=== PATIENT | male | born 1955 | race Caucasian/White ===

== ENCOUNTER → 2016-07-09 | Outpatient (CLI) | payer BC ==
[~2016-07-09] VITALS: Ht 175.3 cm; Wt 89.8 kg
[~2016-07-09] MED LIST: LIDOCAINE 2% INJ 100 MG/5 ML SDV (FOR ANES.) As Ordered ONE; LISI10TA4 PO; NS 1,000 ML IV SCH; PROPOFOL 500 MG/50 ML VIAL As Ordered ONE; VYTO10TA2 PO; ePHEDrine SULFATE 25 MG/5 ML(5MG/ML) SYRINGE As Ordered ONE
--- NOTE | 2016-07-09 10:35 | ROOR ---
Patient Name: Anthony Tovar Procedure Date: 07/09/2016 10:11 AM Date of : 1955 Age: 61 Room: [facility] Gender: Male Note Status: Finalized Procedure: Colonoscopy to Cecum Indications: High risk colon cancer surveillance: Personal history of colonic polyps Providers: Kirby Vick MD Referring MD: Jenaro Snyder MD Requesting Provider: Medicines: Monitored Anesthesia Care Complications: No immediate complications. Procedure: Pre-Anesthesia Assessment: - The heart rate, respiratory rate, oxygen saturations, blood pressure, adequacy of pulmonary ventilation, and response to care were monitored throughout the procedure. The Colonoscope was introduced through the anus and advanced to the cecum, identified by appendiceal orifice and ileocecal valve. The colonoscopy was performed without difficulty. The patient tolerated the procedure well. The quality of the bowel preparation was good. Findings: The perianal and digital rectal examinations were normal. Non-bleeding internal hemorrhoids were found during retroflexion. The hemorrhoids were small and Grade I (internal hemorrhoids that do not prolapse). No other significant abnormalities were identified in a careful examination of the remainder of the colon. The exam was otherwise without abnormality on direct and retroflexion views. Impression: - Non-bleeding internal hemorrhoids. - The examination was otherwise normal on direct and retroflexion views. - No specimens collected. - The exam was otherwise normal to the cecum. Recommendation: - Patient has a contact number available for emergencies. The signs and symptoms of potential delayed complications were discussed with the patient. Return to normal activities tomorrow. Written discharge instructions were provided to the patient. - High fiber diet. - Discharge patient to home. - Continue present medications. - Repeat colonoscopy in 5 years for screening purposes. - Return to referring physician. - The findings and recommendations were discussed with the patient's family. Kirby Vick MD Kirby Vick MD 07/09/2016 10:34:49 AM This report has been signed electronically. Number of Addenda: 0 Note Initiated On: 07/09/2016 10:11 AM Estimated Blood Loss: Estimated blood loss: none.
[2016-07-09 10:55] VITALS: BP 124/54
== END | disposition home or self-care (01) ==
LOC: M OPP 09:02
PROVIDERS: ATTEND Internal Medicine Gastroenterology
DX: Z12.11 Encounter for screening for malignant neoplasm of colon (principal); Z86.010 Personal history of colon polyps; K64.0 First degree hemorrhoids; I10 Essential (primary) hypertension; E78.00 Pure hypercholesterolemia, unspecified; Z97.4 Presence of external hearing-aid; Z79.899 Other long term (current) drug therapy

== ENCOUNTER → 2016-10-16 | Outpatient (CLI) | payer BC ==
[~2016-10-16] MED LIST changes: -LIDOCAINE 2% INJ 100 MG/5 ML SDV (FOR ANES.) As Ordered ONE; -NS 1,000 ML IV SCH; -PROPOFOL 500 MG/50 ML VIAL As Ordered ONE; -ePHEDrine SULFATE 25 MG/5 ML(5MG/ML) SYRINGE As Ordered ONE
[2016-10-16 17:58] LABS: ALBUMIN 3.6 GM/DL (3.2-5.2); ALBUMIN/GLOBULIN RATIO 1.16 (1.00-1.93); ALKALINE PHOSPHATASE 62 U/L (45-117); ALT/SGPT 45 U/L (12-78); ANION GAP 7 MEQ/L (8-16); AST/SGOT 28 U/L (15-37); BILIRUBIN,TOTAL 0.4 MG/DL (0.2-1.0); BLOOD UREA NITROGEN 25 MG/DL (7-18); CALCIUM LEVEL 8.7 MG/DL (8.5-10.1); CARBON DIOXIDE LEVEL 27 MEQ/L (21-32); CHLORIDE LEVEL 109 MEQ/L (98-107); CHOLESTEROL LEVEL 226 MG/DL (<200); CREATININE FOR GFR 1.21 MG/DL (0.70-1.30); GLOMERULAR FILTRATION RATE > 60.0 (>56); GLUCOSE, FASTING 105 MG/DL (70-105); POTASSIUM SERUM 4.4 MEQ/L (3.5-5.1); SODIUM LEVEL 143 MEQ/L (136-145); TOTAL PROTEIN 6.7 GM/DL (6.4-8.2); TRIGLYCERIDES LEVEL 244 MG/DL (<150)
[2016-10-19 14:20] LABS: PSA TOTAL 0.8 ng/mL (0.0-4.0)
== END ==
LOC: M WUC 08:08
PROVIDERS: ATTEND Nurse Practitioner Family
DX: E78.4 Other hyperlipidemia (principal); I10 Essential (primary) hypertension; Z12.5 Encounter for screening for malignant neoplasm of prostate; Z13.818 Encounter for screening for other digestive system disorders

== ENCOUNTER 2018-03-20 16:17 | Inpatient (IN) | payer OTHER, BC ==
[2018-03-20 17:30] LABS: HEMOGLOBIN 15.1 g/dl (13.5-17.5); MEAN CORPUSCULAR HEMOGLOBIN 29.8 pg (27.0-33.0); MEAN CORPUSCULAR HGB CONC 34.3 g/dl (32.0-36.5); PLATELET COUNT, AUTOMATED 301 10^3/uL (150-450); RED BLOOD COUNT 5.06 10^6/uL (4.30-6.10); RED CELL DISTRIBUTION WIDTH 12.5 % (11.5-14.5); WHITE BLOOD COUNT 9.4 10^3/uL (4.0-10.0)
[2018-03-20 17:55] LABS: INR 1.01; PROTHROMBIN TIME 13.4 SECONDS (12.1-14.4)
[2018-03-20 18:01] LABS: ANION GAP 10 MEQ/L (8-16); BLOOD UREA NITROGEN 23 MG/DL (7-18); CALCIUM LEVEL 8.7 MG/DL (8.8-10.2); CARBON DIOXIDE LEVEL 23 MEQ/L (21-32); CHLORIDE LEVEL 111 MEQ/L (98-107); GLOMERULAR FILTRATION RATE > 60.0 (>49); GLUCOSE, FASTING 147 MG/DL (70-100); POTASSIUM SERUM 4.1 MEQ/L (3.5-5.1); SODIUM LEVEL 144 MEQ/L (136-145)
[2018-03-20] MEDS: LORazepam 1 MG TAB PO ×2 (19:05→19:40)
[2018-03-20] MEDS ORDERED: LORazepam 2 MG/ML VIAL (J2060) IV (19:35)
[2018-03-20] MEDS ORDERED: ISOVUE-370 76% 100ML VIAL (Q9967) As Ordered (20:38)
[2018-03-20] MEDS: METOCLOPRAMIDE INJ 10MG/2ML VIAL (J2765) IV (20:40)
[2018-03-20] MEDS ORDERED: VANCOMYCIN HCL 1,000 MG, VIAL MATE ADAPTER 1 EACH in D5W 250 ML IV (21:30)
[2018-03-20] MEDS ORDERED: CEFEPIME HCL 1 GM in D5W MINI-BAG PLUS 50 ML IV (21:30)
[2018-03-20] MEDS ORDERED: NS 1,000 ML IV (23:30)
[2018-03-21 00:07] LABS: CPK CREATINE PHOSPHOKINASE 208 U/L (39-308); MAGNESIUM LEVEL 2.4 MG/DL (1.8-2.4)
[2018-03-21] MEDS: SUMAtriptan SUCCINATE 25 MG TAB PO (00:51)
[2018-03-21] MEDS: HEPARIN SOD (PORCINE) 5000 UNITS/ML VIAL SC ×3 (05:44→20:33)
[2018-03-21] MEDS: ACETAMINOPHEN TAB 650MG DOSE (2X325MG) PO (05:44)
[2018-03-21 07:05] LABS: HEMATOCRIT 40.8 % (42.0-52.0); HEMOGLOBIN 13.6 g/dl (13.5-17.5); MEAN CORPUSCULAR HEMOGLOBIN 29.3 pg (27.0-33.0); MEAN CORPUSCULAR HGB CONC 33.3 g/dl (32.0-36.5); MEAN CORPUSCULAR VOLUME 87.9 fl (80.0-96.0); PLATELET COUNT, AUTOMATED 267 10^3/uL (150-450); RED BLOOD COUNT 4.64 10^6/uL (4.30-6.10); RED CELL DISTRIBUTION WIDTH 12.6 % (11.5-14.5); WHITE BLOOD COUNT 9.8 10^3/uL (4.0-10.0)
[2018-03-21 07:23] LABS: ANION GAP 8 MEQ/L (8-16); BLOOD UREA NITROGEN 19 MG/DL (7-18); CALCIUM LEVEL 8.3 MG/DL (8.8-10.2); CARBON DIOXIDE LEVEL 25 MEQ/L (21-32); CHLORIDE LEVEL 110 MEQ/L (98-107); CREATININE FOR GFR 1.08 MG/DL (0.70-1.30); GLOMERULAR FILTRATION RATE > 60.0 (>49); GLUCOSE, FASTING 85 MG/DL (70-100); POTASSIUM SERUM 3.8 MEQ/L (3.5-5.1); SODIUM LEVEL 143 MEQ/L (136-145)
[2018-03-21] MEDS: FLUTICASONE PROP 0.05% NASAL SPRAY 16 GM (FLONASE) NARES ×2 (08:24→21:00)
[2018-03-21] MEDS: EZETIMIBE 10 MG TAB (ZETIA) PO (08:24)
[2018-03-21] MEDS ORDERED: ACETAMINOPHEN TAB 650MG DOSE (2X325MG) PO (09:15)
[2018-03-21] MEDS: PANTOPRAZOLE 40MG TAB (PROTONIX) PO (09:47)
[2018-03-21] MEDS: METOCLOPRAMIDE INJ 10MG/2ML VIAL (J2765) IV (09:47)
[2018-03-21] MEDS: MAALOX 30 ML SUSP *UDC PO (09:47)
[2018-03-21] MEDS: KETOROLAC 30 MG/ML VIAL (J1885) IV ×2 (09:47→17:11)
[2018-03-21] MEDS: CETIRIZINE (ZyrTEC) 10 MG TAB PO (09:47)
[2018-03-21] MEDS: PHENYLEPHRINE 2.5% OPHTH SOL 2ML XX (11:00)
[2018-03-21] MEDS: TROPICAMIDE 1% OPHTH SOLN 2ML XX (11:00)
[2018-03-21] MEDS: PROPARACAINE 0.5% OPHTH SOL 15ML XX (11:00)
[2018-03-21] MEDS: ASPIRIN 81 MG ENTERIC TAB PO (18:37)
[2018-03-21 19:31] LABS: CPK CREATINE PHOSPHOKINASE 105 U/L (39-308); MB/CK RELATIVE INDEX 0.95 (< OR =4); TROPONIN I < 0.02 NG/ML (< 0.10)
[2018-03-21] MEDS: SIMVASTATIN 40 MG TAB PO (20:32)
[2018-03-21] MEDS: LISINOPRIL 10 MG TAB PO (20:33)
[2018-03-21] MEDS ORDERED: LevoFLOXacin 500 MG TABLET PO (21:00)
[2018-03-22 00:50] LABS: CK-MB VALUE MASS < 1.0 NG/ML (<3.6); CPK CREATINE PHOSPHOKINASE 95 U/L (39-308); MB/CK RELATIVE INDEX 1.05 (< OR =4); TROPONIN I < 0.02 NG/ML (< 0.10)
[2018-03-22 05:13] LABS: HEMATOCRIT 38.2 % (42.0-52.0); HEMOGLOBIN 13.2 g/dl (13.5-17.5); MEAN CORPUSCULAR HEMOGLOBIN 29.8 pg (27.0-33.0); MEAN CORPUSCULAR HGB CONC 34.6 g/dl (32.0-36.5); MEAN CORPUSCULAR VOLUME 86.2 fl (80.0-96.0); PLATELET COUNT, AUTOMATED 256 10^3/uL (150-450); RED BLOOD COUNT 4.43 10^6/uL (4.30-6.10); RED CELL DISTRIBUTION WIDTH 12.2 % (11.5-14.5); WHITE BLOOD COUNT 9.1 10^3/uL (4.0-10.0)
[2018-03-22] MEDS: HEPARIN SOD (PORCINE) 5000 UNITS/ML VIAL SC ×2 (05:21→15:45)
[2018-03-22] MEDS: KETOROLAC 30 MG/ML VIAL (J1885) IV (05:21)
[2018-03-22 05:31] LABS: ANION GAP 9 MEQ/L (8-16); BLOOD UREA NITROGEN 19 MG/DL (7-18); CALCIUM LEVEL 8.2 MG/DL (8.8-10.2); CARBON DIOXIDE LEVEL 25 MEQ/L (21-32); CHLORIDE LEVEL 110 MEQ/L (98-107); CREATININE FOR GFR 1.06 MG/DL (0.70-1.30); GLOMERULAR FILTRATION RATE > 60.0 (>49); GLUCOSE, FASTING 102 MG/DL (70-100); POTASSIUM SERUM 4.1 MEQ/L (3.5-5.1); SODIUM LEVEL 144 MEQ/L (136-145)
[2018-03-22] MEDS: FLUTICASONE PROP 0.05% NASAL SPRAY 16 GM (FLONASE) NARES (08:59)
[2018-03-22] MEDS: PANTOPRAZOLE 40MG TAB (PROTONIX) PO (08:59)
[2018-03-22] MEDS: ASPIRIN 81 MG ENTERIC TAB PO (08:59)
[2018-03-22] MEDS: EZETIMIBE 10 MG TAB (ZETIA) PO (08:59)
[2018-03-22 18:38] LABS: ERYTHROCYTE SEDIMENTATION RATE 3 mm/hr (0-20)
[2018-03-22 18:40] LABS: C REACTIVE PROTEIN QUANTITATIV < 0.30 MG/DL (0.00-0.30)
== END 2018-03-22 19:30 | disposition short-term general hospital (02) | DRG 66 ==
LOC: M MSPAV 03-21 17:01 → M ED 16:17 → M ICU 03-21 19:05 → M ED INP 23:21
DX: I63.9 Cerebral infarction, unspecified (principal); H49.02 Third [oculomotor] nerve palsy, left eye; H02.432 Paralytic ptosis of left eyelid; I10 Essential (primary) hypertension; R00.1 Bradycardia, unspecified; H50.00 Unspecified esotropia; J32.9 Chronic sinusitis, unspecified; H53.2 Diplopia; E78.5 Hyperlipidemia, unspecified; G43.909 Migraine, unspecified, not intractable, without status migrainosus; H04.123 Dry eye syndrome of bilateral lacrimal glands; H35.033 Hypertensive retinopathy, bilateral; H43.813 Vitreous degeneration, bilateral; E78.00 Pure hypercholesterolemia, unspecified; G43.109 Migraine with aura, not intractable, without status migrainosus; Z79.899 Other long term (current) drug therapy

== ENCOUNTER 2018-09-02 14:11 | Emergency (ER) | payer OTHER ==
[~2018-09-02] VITALS: Ht 172.7 cm; Wt 90.9 kg
[~2018-09-02 14:11] MED LIST changes: +EZET10TA PO; +FROV2.5T6 PO; +LEVA1TAB2 PO; +SIMV40TA2 PO; -VYTO10TA2 PO; +VYTO10TA25 PO
[2018-09-02] MEDS ORDERED: LIDOCAINE W/EPINEPHRINE 1% 20ML VIAL As Ordered ONE (15:09)
[2018-09-02] MEDS ORDERED: ADACEL/BOOSTRIX VACCINE (DIPHTH/PERTUSS/ACELL/TETANUS)0.5ML SYR (90715) IM ONE (15:30)
[2018-09-02] MEDS ORDERED: LIDOCAINE W/EPINEPHRINE 1% 20ML VIAL SC ONE (15:30)
[2018-09-02 15:32] VITALS: BP 121/96
== END 2018-09-02 15:38 | disposition home or self-care (01) ==
LOC: M ED 14:11
DX: S01.01XA Laceration without foreign body of scalp, initial encounter (principal); X58.XXXA Exposure to other specified factors, initial encounter; Y92.59 Other trade areas as the place of occurrence of the external cause; I10 Essential (primary) hypertension; Z79.899 Other long term (current) drug therapy

== ENCOUNTER 2018-11-07 08:06 | Outpatient (CLI) | payer OTHER ==
[2018-11-07] MEDS ORDERED: MIDAZOLAM INJ 2 MG/2 ML VIAL (J2250) As Ordered ONE ×2 (08:14→08:15)
[2018-11-07] MEDS ORDERED: PROHANCE 279.3MG/ML 15ML VIAL (A9576) As Ordered ONE (09:18)
[2018-11-07] MEDS ORDERED: PROHANCE 279.3MG/ML 5ML VIAL (A9576) As Ordered ONE (09:18)
[2018-11-07 10:05] VITALS: BP 134/63
--- NOTE | 2018-11-08 08:41 | REP ---
MR BRAIN WITHOUT AND WITH CONTRAST: HISTORY: Meningioma. CONTRAST: ProHance 19 mL. COMPARISON: CT 03/20/2018. Several punctate areas of increased signal intensity on T2 weighted images are present in the subcortical white matter. This represents small vessel ischemic disease. There is no intraparenchymal hemorrhage, infarct or midline shift. The ventricular system is normal in appearance. There is no extracerebral collection. A small mass iso and slightly hyperintense on T1 and T2 weighted images respectively is present in the inferior left cavernous sinus. There is mild homogenous enhancement with contrast. This represents a meningoma. The meningioma measures 0.9 cm in transverse x 1.4 cm in AP x 1 cm cephalocaudal dimensions. The meningoma partially encases the cavernous left internal carotid artery. There is no extension into the sella turcica. The infundibulum is midline. The right cavernous sinus, optic chiasm and hypothalamus are normal in appearance. The visualized sinuses are clear. IMPRESSION: 1. Minimal small vessel ischemic disease. 2. Small left cavernous sinus meningoma as described above. Electronically Signed by Iglesia Bello MD 11/08/2018 08:46 A
== END 2018-11-07 10:35 | disposition home or self-care (01) ==
LOC: M RAD 08:06
PROVIDERS: ATTEND Physician Assistant Medical
DX: D32.9 Benign neoplasm of meninges, unspecified (principal); I67.82 Cerebral ischemia
CPT/HCPCS: 70553; A9576; J2250

== ENCOUNTER → 2019-04-16 | Outpatient (CLI) | payer OTHER ==
[~2019-04-16] MED LIST changes: -EZET10TA PO; +EZET10TA21 PO
[2019-04-16 09:33] LABS: BASO # 0.1 10^3/uL (0.0-0.2); BASO % 0.8 % (0.0-1.0); EOS # 0.3 10^3/uL (0.0-0.5); EOS % 3.8 % (0.0-3.0); HEMATOCRIT 41.4 % (42.0-52.0); HEMOGLOBIN 13.6 g/dl (13.5-17.5); LYMPH % 30.8 % (24.0-44.0); MEAN CORPUSCULAR HEMOGLOBIN 29.3 pg (27.0-33.0); MEAN CORPUSCULAR HGB CONC 32.9 g/dl (32.0-36.5); MEAN CORPUSCULAR VOLUME 89.2 fl (80.0-96.0); MONO # 0.7 10^3/uL (0.0-0.8); NEUTROPHILS # 3.6 10^3/uL (1.5-8.5); NEUTROPHILS % 54.3 % (36.0-66.0); PLATELET COUNT, AUTOMATED 234 10^3/uL (150-450); RED BLOOD COUNT 4.64 10^6/uL (4.30-6.10); WHITE BLOOD COUNT 6.6 10^3/uL (4.0-10.0)
[2019-04-16 10:11] LABS: ALBUMIN 3.6 GM/DL (3.2-5.2); ALT/SGPT 42 U/L (12-78); BILIRUBIN,TOTAL 0.5 MG/DL (0.2-1.0); BLOOD UREA NITROGEN 17 MG/DL (7-18); CALCIUM LEVEL 8.7 MG/DL (8.8-10.2); CARBON DIOXIDE LEVEL 30 MEQ/L (21-32); CHLORIDE LEVEL 111 MEQ/L (98-107); CHOLESTEROL LEVEL 205 MG/DL (<200); CHOLESTEROL RISK RATIO 3.203 (<5); CREATININE FOR GFR 1.11 MG/DL (0.70-1.30); FREE T4 0.85 NG/DL (0.76-1.46); GLOMERULAR FILTRATION RATE > 60.0 (>49); GLUCOSE, FASTING 95 MG/DL (70-100); HDL CHOLESTEROL 64 MG/DL (>40); LDL CHOLESTEROL 104 MG/DL (<100); NON-HDL-C 141 MG/DL; POTASSIUM SERUM 4.7 MEQ/L (3.5-5.1); SODIUM LEVEL 144 MEQ/L (136-145); TOTAL PROTEIN 6.8 GM/DL (6.4-8.2); TRIGLYCERIDES LEVEL 186 MG/DL (<150)
== END ==
LOC: M WUC 08:17
PROVIDERS: ATTEND Nurse Practitioner Family
DX: D32.9 Benign neoplasm of meninges, unspecified (principal); D49.6 Neoplasm of unspecified behavior of brain; E78.01 Familial hypercholesterolemia

== ENCOUNTER → 2019-05-22 | Outpatient (CLI) | payer OTHER ==
[~2019-05-22] MED LIST changes: +MIDAZOLAM INJ 2 MG/2 ML VIAL (J2250) As Ordered ONE; +PROHANCE 279.3MG/ML 15ML VIAL (A9576) As Ordered ONE; +PROHANCE 279.3MG/ML 5ML VIAL (A9576) As Ordered ONE; -SIMV40TA2 PO; +SIMV40TA20 PO; +ZETI10TA16 PO
[2019-05-22 09:30] VITALS: BP 134/89
--- NOTE | 2019-05-22 10:37 | REP ---
MRI BRAIN WITHOUT AND WITH IV CONTRAST: HISTORY: Meningioma. Comparison MRI study is from Nov [address] angiography March 20, 2018. TECHNIQUE: Axial, coronal, and sagittal imaging planes utilized for pre- and postcontrast MR imaging. T1- and T2-weighted sequences include spin-echo, turbo spin echo, FLAIR, diffusion, and postcontrast T1 weighted scans and all three imaging planes. MRI FINDINGS: No bony calvarial lesion is seen. Craniocervical junction is unremarkable. There is evidence of mild mucosal disease involving the ethmoid sinuses bilaterally. No intraorbital abnormality is appreciated. There is mass effect in the cavernous sinus on the left again noted with postcontrast imaging showing some enhancement compatible with the previously described left cavernous sinus meningioma. It is unchanged in size and appearance from the study done November 07, [address] angiography study done March 20, 2018. There is some medial bowing of the lateral wall of the sphenoid sinus at the level of the lesion as before. Suprasellar cistern is intact. Optic chiasm is unremarkable. The pituitary stalk is in the midline. Diffusion weighted scans show no evidence of restricted diffusion to suggest acute ischemia. Larios-white differentiation pattern is intact. There are one or two subcortical white matter foci on T2-weighted scans in the frontal lobes. No other abnormal gadolinium enhancement is seen. IMPRESSION: Enhancing stable lesion in the cavernous sinus on the left consistent with meningioma. This is unchanged in size or appearance from the March 20, 2018 prior study. Electronically Signed by Harmeet Shannon MD 05/22/2019 10:46 A
== END ==
LOC: M SDC 06:51
PROVIDERS: ATTEND Neurological Surgery
DX: D32.9 Benign neoplasm of meninges, unspecified (principal)
CPT/HCPCS: 70553; 99156; 99157; A9576; C1788; J2250

== ENCOUNTER → 2019-09-25 | Outpatient (CLI) | payer OTHER ==
[~2019-09-25] MED LIST changes: -MIDAZOLAM INJ 2 MG/2 ML VIAL (J2250) As Ordered ONE; -PROHANCE 279.3MG/ML 15ML VIAL (A9576) As Ordered ONE; -PROHANCE 279.3MG/ML 5ML VIAL (A9576) As Ordered ONE
== END ==
LOC: M WUC 08:16
PROVIDERS: ATTEND Nurse Practitioner Family
DX: Z12.5 Encounter for screening for malignant neoplasm of prostate (principal)
CPT/HCPCS: 36415; G0103

== ENCOUNTER → 2020-03-06 | Outpatient (REF) | payer OTHER ==
[2020-03-06 14:07] LABS: BASO # 0.1 10^3/uL (0.0-0.2); BASO % 0.7 % (0.0-1.0); EOS # 0.3 10^3/uL (0.0-0.5); EOS % 4.5 % (0.0-3.0); HEMATOCRIT 41.5 % (42.0-52.0); HEMOGLOBIN 13.5 g/dl (13.5-17.5); LYMPH # 2.2 10^3/uL (1.5-5.0); LYMPH % 32.3 % (24.0-44.0); MEAN CORPUSCULAR HEMOGLOBIN 29.4 pg (27.0-33.0); MEAN CORPUSCULAR HGB CONC 32.5 g/dl (32.0-36.5); MEAN CORPUSCULAR VOLUME 90.4 fl (80.0-96.0); MONO # 0.8 10^3/uL (0.0-0.8); MONO % 11.5 % (0.0-5.0); NEUTROPHILS # 3.5 10^3/uL (1.5-8.5); NEUTROPHILS % 50.7 % (36.0-66.0); PLATELET COUNT, AUTOMATED 241 10^3/uL (150-450); RED BLOOD COUNT 4.59 10^6/uL (4.30-6.10); WHITE BLOOD COUNT 6.9 10^3/uL (4.0-10.0)
[2020-03-06 14:24] LABS: ALBUMIN 3.5 GM/DL (3.2-5.2); ALT/SGPT 43 U/L (12-78); BILIRUBIN,TOTAL 0.7 MG/DL (0.2-1.0); BLOOD UREA NITROGEN 16 MG/DL (7-18); CARBON DIOXIDE LEVEL 25 MEQ/L (21-32); CHLORIDE LEVEL 111 MEQ/L (98-107); CHOLESTEROL LEVEL 230 MG/DL (<200); CREATININE FOR GFR 1.05 MG/DL (0.70-1.30); FREE T4 0.94 NG/DL (0.76-1.46); GLOMERULAR FILTRATION RATE > 60.0 (>49); GLUCOSE, FASTING 88 MG/DL (70-100); HDL CHOLESTEROL 61 MG/DL (>40); LDL CHOLESTEROL 119 MG/DL (<100); NON-HDL-C 169 MG/DL; POTASSIUM SERUM 4.7 MEQ/L (3.5-5.1); PROSTATIC SPECIFIC AG MONITOR 1.31 NG/ML (< 4.00); SODIUM LEVEL 141 MEQ/L (136-145); TRIGLYCERIDES LEVEL 250 MG/DL (<150)
== END ==
LOC: M LABDRWAD 08:07
PROVIDERS: ATTEND Nurse Practitioner Family
DX: D32.9 Benign neoplasm of meninges, unspecified (principal); D49.6 Neoplasm of unspecified behavior of brain; E78.01 Familial hypercholesterolemia; Z12.5 Encounter for screening for malignant neoplasm of prostate; Z76.89 Persons encountering health services in other specified circumstances

== ENCOUNTER → 2020-04-14 | Outpatient (CLI) | payer OTHER | LOC: M LABSMTC 09:21 | PROVIDERS: ATTEND Pediatrics | DX: Z20.828 Contact with and (suspected) exposure to other viral communicable diseases (principal) ==

== ENCOUNTER → 2020-06-09 | Outpatient (REF) | payer OTHER ==
[2020-06-09 14:25] LABS: BLOOD UREA NITROGEN 18 MG/DL (7-18); CALCIUM LEVEL 8.6 MG/DL (8.8-10.2); CARBON DIOXIDE LEVEL 27 MEQ/L (21-32); CHLORIDE LEVEL 110 MEQ/L (98-107); GLOMERULAR FILTRATION RATE > 60.0 (>49); GLUCOSE, FASTING 85 MG/DL (70-100); POTASSIUM SERUM 5.1 MEQ/L (3.5-5.1); SODIUM LEVEL 140 MEQ/L (136-145)
== END ==
LOC: M SFHCCLAY 09:04
PROVIDERS: ATTEND Family Medicine
DX: Z01.818 Encounter for other preprocedural examination (principal); I10 Essential (primary) hypertension

== ENCOUNTER → 2020-06-12 | Outpatient (CLI) | payer OTHER | LOC: M LABSMTC 10:05 | PROVIDERS: ATTEND Physician Assistant | DX: Z01.812 Encounter for preprocedural laboratory examination (principal); Z20.828 Contact with and (suspected) exposure to other viral communicable diseases ==

== ENCOUNTER 2020-06-17 08:36 | Outpatient (CLI) | payer OTHER ==
[2020-06-17] MEDS ORDERED: PROHANCE 279.3MG/ML 15ML VIAL As Ordered ONE (09:46)
[2020-06-17] MEDS ORDERED: PROHANCE 279.3MG/ML 5ML VIAL As Ordered ONE (09:46)
[2020-06-17 11:10] VITALS: BP 126/77
--- NOTE | 2020-06-17 11:29 | REPVR ---
PROCEDURE INFORMATION: Exam: MR Head Without and With Contrast Exam date and time: 06/17/2020 9:56 AM Age: 65 years old Clinical indication: Condition or disease; Brain tumor; Neoplasm of brain, not specified; Prior surgery; Surgery date: 6+ months; Additional info: Sinus meningioma tumor S/P gamma knife 07/04/18 w/ sedation TECHNIQUE: Imaging protocol: MR of the head without and with intravenous contrast. Contrast material: PROHANCE; Contrast volume: 19 ml; Contrast route: INTRAVENOUS (IV); COMPARISON: MRI-Brain W/O FOLL BY WITH 05/22/2019 8:13 AM FINDINGS: Limitations: There is motion artifact partially and overall mildly degrading examination. Brain: Again seen is enhancing lesion within the left cavernous sinus consistent with meningioma. This appears unchanged and measures approximately 9 mm by 15 mm on axial imaging. This surrounds the cavernous internal carotid artery without narrowing the flow void evident. There is medial bowing the adjacent sphenoid sinus wall. There is no restricted diffusion or acute infarct. There is no evidence of acute hemorrhage. There is no abnormal parenchymal contrast enhancement. Cerebral ventricles: Normal. No ventriculomegaly. Bones/joints: Unremarkable as visualized. Paranasal sinuses: There are retention cysts or polyps in right frontal and left sphenoid sinuses. There is mucosal thickening in paranasal sinuses similar to prior examination. Mastoid air cells: No significant mastoid effusion. Orbits: Unremarkable as visualized. No exophthalmos or evidence of mass. Soft tissues: Unremarkable as visualized. IMPRESSION: Stable left cavernous sinus meningioma. Electronically signed by: Sonya Damon On 06/17/2020 11:29:15 AM
== END 2020-06-17 11:12 | disposition home or self-care (01) ==
LOC: M RAD 08:36
PROVIDERS: ATTEND Physician Assistant
DX: Z01.818 Encounter for other preprocedural examination (principal); D32.0 Benign neoplasm of cerebral meninges
CPT/HCPCS: 70553; A9576

== ENCOUNTER → 2020-10-17 | Outpatient (REF) | payer OTHER ==
[~2020-10-17] MED LIST changes: +LISI10TA22 PO; -LISI10TA4 PO
[2020-10-17 12:29] LABS: ALBUMIN 3.6 GM/DL (3.2-5.2); ALT/SGPT 38 U/L (12-78); BILIRUBIN,TOTAL 0.6 MG/DL (0.2-1.0); BLOOD UREA NITROGEN 20 MG/DL (7-18); CALCIUM LEVEL 8.9 MG/DL (8.8-10.2); CARBON DIOXIDE LEVEL 28 MEQ/L (21-32); CHLORIDE LEVEL 109 MEQ/L (98-107); CHOLESTEROL LEVEL 229 MG/DL (<200); CHOLESTEROL RISK RATIO 4.089 (<5); CREATININE FOR GFR 1.07 MG/DL (0.70-1.30); GLOMERULAR FILTRATION RATE > 60.0 (>49); GLUCOSE, FASTING 98 MG/DL (70-100); HDL CHOLESTEROL 56 MG/DL (>40); LDL CHOLESTEROL 116 MG/DL (<100); NON-HDL-C 173 MG/DL; POTASSIUM SERUM 4.7 MEQ/L (3.5-5.1); SODIUM LEVEL 141 MEQ/L (136-145); TOTAL PROTEIN 6.8 GM/DL (6.4-8.2); TRIGLYCERIDES LEVEL 283 MG/DL (<150)
== END ==
LOC: M SFHCCLAY 06:46
PROVIDERS: ATTEND Nurse Practitioner Family
DX: E78.01 Familial hypercholesterolemia (principal); D49.6 Neoplasm of unspecified behavior of brain; D32.9 Benign neoplasm of meninges, unspecified; B35.1 Tinea unguium

== ENCOUNTER → 2021-04-22 | Outpatient (REF) | payer OTHER | LOC: M SFHCCLAY 07:49 | PROVIDERS: ATTEND Nurse Practitioner Family | DX: D32.9 Benign neoplasm of meninges, unspecified (principal); E78.1 Pure hyperglyceridemia; D49.6 Neoplasm of unspecified behavior of brain; E78.01 Familial hypercholesterolemia; Z13.1 Encounter for screening for diabetes mellitus; Z12.5 Encounter for screening for malignant neoplasm of prostate ==

== ENCOUNTER → 2021-07-17 | Outpatient (REF) | payer OTHER | LOC: M LAB REF 17:13 | PROVIDERS: ATTEND Nurse Practitioner Family | DX: D23.62 Other benign neoplasm of skin of left upper limb, including shoulder (principal) | CPT/HCPCS: 11102; 11200; 17110; 88305; 88342; G0463 ==

== ENCOUNTER → 2022-04-08 | Outpatient (CLI) | payer OTHER ==
[~2022-04-08] MED LIST changes: +EZET-20 PO; -VYTO10TA25 PO
[2022-04-08 10:20] LABS: BASO % 0.6 % (0.0-1.0); EOS # 0.2 10^3/uL (0.0-0.5); EOS % 3.2 % (0.0-3.0); HEMATOCRIT 44.7 % (42.0-52.0); HEMOGLOBIN 14.6 g/dl (13.5-17.5); LYMPH # 2.1 10^3/uL (1.5-5.0); LYMPH % 32.5 % (24.0-44.0); MEAN CORPUSCULAR HEMOGLOBIN 29.4 pg (27.0-33.0); MEAN CORPUSCULAR HGB CONC 32.7 g/dl (32.0-36.5); MEAN CORPUSCULAR VOLUME 89.9 fl (80.0-96.0); MONO # 0.6 10^3/uL (0.0-0.8); MONO % 9.6 % (2.0-8.0); NEUTROPHILS # 3.5 10^3/uL (1.5-8.5); NEUTROPHILS % 53.6 % (36.0-66.0); PLATELET COUNT, AUTOMATED 239 10^3/uL (150-450); RED BLOOD COUNT 4.97 10^6/uL (4.30-6.10); WHITE BLOOD COUNT 6.5 10^3/uL (4.0-10.0)
[2022-04-08 10:42] LABS: HEMOGLOBIN A1c 5.7 %
[2022-04-08 11:06] LABS: ALBUMIN 3.8 GM/DL (3.2-5.2); ALT/SGPT 39 U/L (12-78); BILIRUBIN,TOTAL 0.7 MG/DL (0.2-1.0); BLOOD UREA NITROGEN 19 MG/DL (7-18); CALCIUM LEVEL 8.8 MG/DL (8.8-10.2); CARBON DIOXIDE LEVEL 28 MEQ/L (21-32); CHLORIDE LEVEL 109 MEQ/L (98-107); CHOLESTEROL LEVEL 196 MG/DL (<200); CHOLESTEROL RISK RATIO 3.438 (<5); FREE T4 0.86 NG/DL (0.76-1.46); GLOMERULAR FILTRATION RATE > 60.0 (>49); GLUCOSE, FASTING 92 MG/DL (70-100); HDL CHOLESTEROL 57 MG/DL (>40); LDL CHOLESTEROL 90 MG/DL (<100); NON-HDL-C 139 MG/DL; POTASSIUM SERUM 4.2 MEQ/L (3.5-5.1); SODIUM LEVEL 141 MEQ/L (136-145); TRIGLYCERIDES LEVEL 246 MG/DL (<150)
== END ==
LOC: M WUC 08:01
PROVIDERS: ATTEND Nurse Practitioner Family
DX: E78.1 Pure hyperglyceridemia (principal); D32.9 Benign neoplasm of meninges, unspecified; D49.6 Neoplasm of unspecified behavior of brain; E78.01 Familial hypercholesterolemia; Z13.1 Encounter for screening for diabetes mellitus
CPT/HCPCS: 36415; 80053; 80061; 83036; 84439; 84443; 85025; G0103

== ENCOUNTER 2022-04-28 07:31 | Day surgery (SDC) | payer MEDICARE, OTHER ==
[~2022-04-28] VITALS: Ht 172.7 cm; Wt 96.2 kg
[~2022-04-28 07:31] MED LIST changes: +LIDOCAINE 2% 100MG/5ML SDV (FOR ANES.) As Ordered ONE; +NS 1,000 ML IV ONE; +propofoL 200 MG/20 ML VIAL As Ordered ONE
[2022-04-28 09:00] VITALS: BP 160/87
== END 2022-04-28 09:14 | disposition home or self-care (01) ==
LOC: M OPP 07:31
PROVIDERS: ATTEND Internal Medicine Gastroenterology
DX: Z12.11 Encounter for screening for malignant neoplasm of colon (principal); Z86.010 Personal history of colon polyps; K64.0 First degree hemorrhoids; K57.30 Diverticulosis of large intestine without perforation or abscess without bleeding; Z79.02 Long term (current) use of antithrombotics/antiplatelets; Z79.899 Other long term (current) drug therapy; I10 Essential (primary) hypertension; E78.00 Pure hypercholesterolemia, unspecified; Z86.011 Personal history of benign neoplasm of the brain

== ENCOUNTER → 2022-06-07 | Outpatient (REF) | payer MEDICARE, OTHER ==
[~2022-06-07] MED LIST changes: -LIDOCAINE 2% 100MG/5ML SDV (FOR ANES.) As Ordered ONE; -NS 1,000 ML IV ONE; -propofoL 200 MG/20 ML VIAL As Ordered ONE
[2022-06-07 12:03] LABS: BLOOD UREA NITROGEN 17 MG/DL (9-23); CALCIUM LEVEL 8.7 MG/DL (8.3-10.6); CARBON DIOXIDE LEVEL 27 MMOL/L (20-31); CHLORIDE LEVEL 108 MMOL/L (98-107); GLOMERULAR FILTRATION RATE > 60.0 (>49); GLUCOSE, FASTING 87 MG/DL (74-106); POTASSIUM SERUM 4.8 MMOL/L (3.5-5.1); SODIUM LEVEL 142 MMOL/L (136-145)
== END ==
LOC: M SFHCCLAY 08:55
PROVIDERS: ATTEND Physician Assistant
DX: D32.9 Benign neoplasm of meninges, unspecified (principal)

== ENCOUNTER → 2022-06-13 | Outpatient (CLI) | payer MEDICARE, OTHER | LOC: M LABSMTC 09:40 | PROVIDERS: ATTEND Anesthesiology | DX: Z01.812 Encounter for preprocedural laboratory examination (principal); Z20.822 Contact with and (suspected) exposure to COVID-19 ==

== ENCOUNTER → 2022-06-15 | Outpatient (CLI) | payer MEDICARE, OTHER ==
[~2022-06-15] MED LIST changes: +MIDAZOLAM INJ 2MG/2ML VIAL (J2250 PER 1MG) As Ordered ONE; +PROHANCE 279.3MG/ML 15ML VIAL As Ordered ONE; +PROHANCE 279.3MG/ML 5ML VIAL As Ordered ONE; +propofoL 200 MG/20 ML VIAL ONE
[2022-06-15 10:00] VITALS: BP 128/70
== END ==
LOC: M RAD 07:56
PROVIDERS: ATTEND Physician Assistant
DX: D49.6 Neoplasm of unspecified behavior of brain (principal)
CPT/HCPCS: 70553; A9576; J2250

== ENCOUNTER → 2023-11-09 | Outpatient (REF) | payer MEDICARE, OTHER ==
[~2023-11-09] MED LIST changes: +EZET10TA58 PO; -MIDAZOLAM INJ 2MG/2ML VIAL (J2250 PER 1MG) As Ordered ONE; -PROHANCE 279.3MG/ML 15ML VIAL As Ordered ONE; -PROHANCE 279.3MG/ML 5ML VIAL As Ordered ONE; -ZETI10TA16 PO; -propofoL 200 MG/20 ML VIAL ONE
== END ==
LOC: M SFHCDERM 12:59
PROVIDERS: ATTEND Nurse Practitioner Family
DX: D22.4 Melanocytic nevi of scalp and neck (principal)

== ENCOUNTER → 2023-11-12 | Outpatient (CLI) | payer MEDICARE, OTHER | LOC: M RAD 11:59 | PROVIDERS: ATTEND Student in an Organized Health Care Education/Training Program | DX: S32.010A Wedge compression fracture of first lumbar vertebra, initial encounter for closed fracture (principal); M47.896 Other spondylosis, lumbar region ==

== ENCOUNTER → 2023-11-24 | Outpatient (CLI) | payer MEDICARE, OTHER | LOC: M SLEEP HO 11:09 | PROVIDERS: ATTEND Internal Medicine | DX: G47.30 Sleep apnea, unspecified (principal) ==

== ENCOUNTER → 2024-02-21 | Outpatient (CLI) | payer MEDICARE, OTHER ==
[~2024-02-21] MED LIST changes: +LIDOCAINE 2% 100MG/5ML SDV (FOR ANES.) ONE; +MIDAZOLAM INJ 2MG/2ML VIAL As Ordered ONE; +PROHANCE 279.3MG/ML 15ML VIAL As Ordered ONE; +PROHANCE 279.3MG/ML 5ML VIAL As Ordered ONE; +propofoL 200 MG/20 ML VIAL ONE
[2024-02-21 13:15] VITALS: TEMP 98.5
[2024-02-21 14:25] VITALS: BP 118/64; O2SAT 96
== END ==
LOC: M RADPRO 01-24 09:54
PROVIDERS: ATTEND Physician Assistant
DX: D32.9 Benign neoplasm of meninges, unspecified (principal)
CPT/HCPCS: 70553; A9576; J2250

== ENCOUNTER → 2024-05-03 | Outpatient (CLI) | payer MEDICARE, OTHER ==
[~2024-05-03] MED LIST changes: -LIDOCAINE 2% 100MG/5ML SDV (FOR ANES.) ONE; -MIDAZOLAM INJ 2MG/2ML VIAL As Ordered ONE; -PROHANCE 279.3MG/ML 15ML VIAL As Ordered ONE; -PROHANCE 279.3MG/ML 5ML VIAL As Ordered ONE; -propofoL 200 MG/20 ML VIAL ONE
== END ==
LOC: M SLEEP 20:00
PROVIDERS: ATTEND Physician Assistant
DX: G47.33 Obstructive sleep apnea (adult) (pediatric) (principal)

== ENCOUNTER → 2024-07-25 | Outpatient (CLI) | payer OTHER | LOC: M SLEEP 20:00 | PROVIDERS: ATTEND Physician Assistant | DX: G47.33 Obstructive sleep apnea (adult) (pediatric) (principal) ==

== ENCOUNTER → 2024-08-17 | Outpatient (REF) | payer MEDICARE, OTHER | LOC: M SFHCDERM 16:32 | PROVIDERS: ATTEND Nurse Practitioner Family | DX: L82.1 Other seborrheic keratosis (principal) ==